=== PATIENT | female | born 1950 | race African-American/Black ===

== ENCOUNTER 2018-09-07 09:20 | Inpatient (IN) ==
[2018-09-07] MEDS ORDERED: ENOXAPARIN 100 MG/ML SYRINGE SUBCUT STA (09:43)
[2018-09-07] MEDS ORDERED: ASPIRIN 325 MG TABLET PO STA (09:43)
[2018-09-07 09:58] LABS: Basophils % 0.3 % (0.0-0.8); Eosinophils # 0.1 10*3/uL (0.0-0.87); Eosinophils % 1.2 % (0.00-10.9); Hematocrit 42.5 VOL% (35.7-47.0); Immature Granulocytes % 0.3 %; Immature Granulocytes Absolute 0.02 #; Lymphocytes # 1.2 10*3/uL (1.4-4.0); Lymphocytes % 17.3 % (21.3-54.2); Mean Corpuscular HGB Conc 32.9 GM/DL (32-36); Mean Corpuscular Hemoglobin 30 PG (27-34); Mean Corpuscular Volume 91.4 FL (87-102); Mean Platelet Volume 12.1 FL (9.6-12.0); Monocytes # 0.5 10*3/uL (0.11-0.8); Monocytes % 7.9 % (1.7-12.7); Neutrophils # 4.9 10*3/uL (1.4-7.4); Platelet Count 178 T/CUMM (130-400); Red Blood Count 4.65 MC/CUMM (3.8-5.5); Red Cell Distribution Width 13.9 % (9.3-17.3); White Blood Count 6.7 T/CUMM (4-12)
[2018-09-07 10:35] LABS: Albumin 3.5 G/DL (3.4-5.0); Bilirubin,Total 0.4 MG/DL (0.2-1.0); Calcium 9.2 MG/DL (8.5-10.1); Potassium 3.9 MMOL/L (3.5-5.1); Total Protein 7.8 G/DL (6.4-8.3)
[2018-09-07] MEDS ORDERED: DEXTROSE 50% 25 GM/50 ML SYRINGE IV PRN (10:53)
[2018-09-07] MEDS ORDERED: ACETAMINOPHEN 325 MG TABLET PO PRN (10:53)
[2018-09-07] MEDS ORDERED: ONDANSETRON 4 MG/2 ML VIAL IV PRN (10:53)
[2018-09-07] MEDS ORDERED: GLUCAGON 1 MG VIAL IM PRN (10:53)
[2018-09-07] MEDS ORDERED: NITROGLYCERIN SL 0.4 MG TABLET SL PRN (10:53)
[2018-09-07] MEDS ORDERED: MORPHINE 4 MG/1 ML VIAL IV PRN ×2 (15:30→19:57)
[2018-09-07 16:34] LABS: CKMB % 5.5 %
[2018-09-07 16:36] LABS: Troponin I 1.93 NG/ML (0.00-0.045)
[2018-09-07] MEDS: NITROGLYCERIN 2% OINT 1 INCH/GM PACK TOP SCH ×2 (17:11→17:45)
[2018-09-07] MEDS: INSULIN LISPRO 100 UNIT/ML SUBCUT SCH ×2 (17:31→22:00)
[2018-09-07 19:15] LABS: CKMB % 5.6 %
[2018-09-07 19:17] LABS: Troponin I 3.21 NG/ML (0.00-0.045)
[2018-09-07] MEDS: POTASSIUM CHLORIDE 20 MEQ TABLET PO SCH (20:56)
[2018-09-07] MEDS: METOPROLOL SUCCINATE XL 100 MG TABLET PO SCH (20:57)
[2018-09-07] MEDS: GLIMEPIRIDE 2 MG TABLET PO SCH (21:01)
[2018-09-07] MEDS: DOCUSATE SODIUM 100 MG CAPSULE PO SCH (21:01)
[2018-09-07] MEDS ORDERED: ENOXAPARIN 80 MG/0.8 ML SYRINGE SUBCUT ONE (22:00)
[2018-09-08] MEDS: NITROGLYCERIN 2% OINT 1 INCH/GM PACK TOP SCH ×4 (00:07→19:04)
[2018-09-08 03:45] LABS: Basophils % 0.1 % (0.0-0.8); Eosinophils # 0.1 10*3/uL (0.0-0.87); Eosinophils % 1.2 % (0.00-10.9); Hematocrit 38.5 VOL% (35.7-47.0); Hemoglobin 12.5 GM/DL (12.0-16.0); Immature Granulocytes % 0.3 %; Immature Granulocytes Absolute 0.02 #; Mean Corpuscular HGB Conc 32.5 GM/DL (32-36); Mean Corpuscular Hemoglobin 30 PG (27-34); Mean Platelet Volume 12.3 FL (9.6-12.0); Monocytes # 0.9 10*3/uL (0.11-0.8); Monocytes % 12.9 % (1.7-12.7); Neutrophils # 3.8 10*3/uL (1.4-7.4); Neutrophils % 56.5 % (38.7-73.9); Platelet Count 190 T/CUMM (130-400); Red Blood Count 4.14 MC/CUMM (3.8-5.5); Red Cell Distribution Width 13.7 % (9.3-17.3); White Blood Count 6.7 T/CUMM (4-12)
[2018-09-08 04:04] LABS: Calcium 8.7 MG/DL (8.5-10.1); Osmolality,Calculated 285.8 MOS/KG (273-304); Potassium 4.6 MMOL/L (3.5-5.1); Risk Ratio 4.83
[2018-09-08] MEDS: INSULIN LISPRO 100 UNIT/ML SUBCUT SCH ×2 (08:57→16:29)
[2018-09-08] MEDS ORDERED: ASPIRIN EC 81 MG TABLET PO SCH (09:00)
[2018-09-08] MEDS ORDERED: ASPIRIN CHEW 81 MG TABLET PO SCH (09:00)
[2018-09-08] MEDS ORDERED: DIAZEPAM 5 MG TABLET PO ONE (09:25)
[2018-09-08] MEDS ORDERED: POTASSIUM CHLORIDE RIDER 10 MEQ in PREMIX 1 EACH IV PRN (09:25)
[2018-09-08] MEDS ORDERED: diphenhydrAMINE CAP 25 MG CAPSULE PO ONE (09:25)
[2018-09-08] MEDS ORDERED: MAGNESIUM SULF RIDER 2 GM in PREMIX 1 EACH IV PRN (09:25)
[2018-09-08] MEDS: PANTOPRAZOLE 40 MG TABLET PO SCH (09:56)
[2018-09-08] MEDS: amLODIPine 10 MG TABLET PO SCH (09:56)
[2018-09-08] MEDS: METOPROLOL SUCCINATE XL 100 MG TABLET PO SCH ×2 (09:56→22:11)
[2018-09-08] MEDS: SIMVASTATIN 20 MG TABLET PO SCH (09:56)
[2018-09-08] MEDS: SODIUM CHLORIDE 0.9% 1,000 ML IV SCH ×2 (09:57→19:05)
[2018-09-08] MEDS: LOSARTAN/HCTZ 50-12.5 MG TABLET PO SCH (10:03)
[2018-09-08] MEDS ORDERED: HEPARIN 5,000 UNIT/1 ML VIAL ONE (12:11)
[2018-09-08] MEDS ORDERED: fentaNYL 100 MCG/2 ML VIAL ONE (12:11)
[2018-09-08] MEDS ORDERED: MIDAZOLAM 2 MG/2 ML VIAL ONE (12:11)
[2018-09-08] MEDS ORDERED: LIDOCAINE 1% 20 ML VIAL ONE (12:13)
[2018-09-08] MEDS ORDERED: TIROFIBAN 5,000 MCG/100 ML PREMIX IV ONE (12:53)
[2018-09-08] MEDS ORDERED: TIROFIBAN 5,000 MCG/100 ML PREMIX IV SCH (13:03)
[2018-09-08] MEDS ORDERED: NITROGLYCERIN DRIP 50 MG/250 ML BOTTLE IV ONE (13:22)
[2018-09-08] MEDS ORDERED: TICAGRELOR 90 MG TABLET ONE (13:36)
[2018-09-08] MEDS ORDERED: fentaNYL 100 MCG/2 ML VIAL IV PRN (14:06)
[2018-09-08] MEDS: GLIMEPIRIDE 2 MG TABLET PO SCH (16:29)
[2018-09-08] MEDS: LORATADINE 10 MG TABLET PO SCH (16:31)
[2018-09-08] MEDS: SPIRONOLACTONE 25 MG TABLET PO SCH (16:31)
[2018-09-08] MEDS: TAMOXIFEN 10 MG TABLET PO SCH (16:31)
[2018-09-08] MEDS: DOCUSATE SODIUM 100 MG CAPSULE PO SCH ×2 (16:31→22:11)
[2018-09-08] MEDS: TICAGRELOR 90 MG TABLET PO SCH (22:10)
[2018-09-08] MEDS: POTASSIUM CHLORIDE 20 MEQ TABLET PO SCH (22:11)
[2018-09-09 04:25] LABS: Basophils % 0.1 % (0.0-0.8); Eosinophils % 0.5 % (0.00-10.9); Hematocrit 35.5 VOL% (35.7-47.0); Hemoglobin 11.6 GM/DL (12.0-16.0); Immature Granulocytes % 0.1 %; Immature Granulocytes Absolute 0.01 #; Lymphocytes # 1.5 10*3/uL (1.4-4.0); Lymphocytes % 19.4 % (21.3-54.2); Mean Corpuscular HGB Conc 32.7 GM/DL (32-36); Mean Corpuscular Hemoglobin 30 PG (27-34); Mean Platelet Volume 12.6 FL (9.6-12.0); Monocytes # 1.1 10*3/uL (0.11-0.8); Monocytes % 14.3 % (1.7-12.7); Neutrophils # 5.2 10*3/uL (1.4-7.4); Neutrophils % 65.6 % (38.7-73.9); Platelet Count 173 T/CUMM (130-400); Red Blood Count 3.86 MC/CUMM (3.8-5.5); White Blood Count 7.9 T/CUMM (4-12)
[2018-09-09 04:47] LABS: Albumin 2.8 G/DL (3.4-5.0); Bilirubin,Total 1.1 MG/DL (0.2-1.0); Calcium 8.4 MG/DL (8.5-10.1); Osmolality,Calculated 275.7 MOS/KG (273-304); Potassium 4.1 MMOL/L (3.5-5.1); Total Protein 6.7 G/DL (6.4-8.3)
[2018-09-09 04:52] LABS: Free T4 (Free Thyroxine) 1.04 NG/DL (0.76-1.46); Thyroid Stimulating Hormone 0.703 uIU/ml (0.358-3.74)
[2018-09-09 08:15] VITALS: BP 116/65
[2018-09-09] MEDS: NITROGLYCERIN 2% OINT 1 INCH/GM PACK TOP SCH ×2 (08:26)
[2018-09-09] MEDS: DOCUSATE SODIUM 100 MG CAPSULE PO SCH (08:58)
[2018-09-09] MEDS: TAMOXIFEN 10 MG TABLET PO SCH (08:58)
[2018-09-09] MEDS: PANTOPRAZOLE 40 MG TABLET PO SCH (08:59)
[2018-09-09] MEDS: METOPROLOL SUCCINATE XL 100 MG TABLET PO SCH (08:59)
[2018-09-09] MEDS: SPIRONOLACTONE 25 MG TABLET PO SCH (08:59)
[2018-09-09] MEDS: TICAGRELOR 90 MG TABLET PO SCH (08:59)
[2018-09-09] MEDS: LORATADINE 10 MG TABLET PO SCH (08:59)
[2018-09-09] MEDS: LOSARTAN/HCTZ 50-12.5 MG TABLET PO SCH (08:59)
[2018-09-09] MEDS: SIMVASTATIN 20 MG TABLET PO SCH (08:59)
[2018-09-09] MEDS: amLODIPine 10 MG TABLET PO SCH (09:00)
[2018-09-09] MEDS ORDERED: ASPIRIN CHEW 81 MG TABLET PO SCH (09:00)
[2018-09-09] MEDS ORDERED: sitaGLIPtin 25 MG TABLET PO SCH (09:30)
== END 2018-09-09 12:47 | disposition home or self-care (01) | DRG 247 ==
LOC: N.ED 09:20 → N.EDINP 09:20 → N.TELES 12:32
PROVIDERS: ADMIT Internal Medicine; ATTEND Internal Medicine
PROC: CLCCHCL (ICD-10-PCS; 2018-09-08 12:15)